=== PATIENT | male | born 1965 | race Caucasian/White ===

== ENCOUNTER 2017-03-14 19:50 | Emergency (ER) | payer OTHER ==
[~2017-03-14] VITALS: Ht 177.8 cm; Wt 71.3 kg
[~2017-03-14 19:50] MED LIST: ACET-1256 PO
[2017-03-14 19:59] VITALS: BP 137/88; TEMP 36.7; Ht 177.8 cm; Wt 71.3 kg
[2017-03-14] MEDS ORDERED: PENICILLIN V POTASSIUM 250 MG TAB PO STA (20:56)
[2017-03-14] MEDS ORDERED: PENICILLIN HOME PACK 250MG (4)BTL PO STA (20:56)
[2017-03-14] MEDS ORDERED: NORCO 5/325MG HOME PACK PO STA (20:56)
[2017-03-14] MEDS ORDERED: HYDROCODONE/ACETAMOPHEN 5/325MG TAB PO STA (20:56)
[2017-03-14] MEDS ORDERED: PRED20TA2 PO (21:23)
[2017-03-14] MEDS ORDERED: HYDR-5688 PO (21:23)
[2017-03-14] MEDS ORDERED: PENI-82 PO (21:23)
--- NOTE | 2017-03-14 21:29 | EMERGENCY ROOM VISIT NOTE ---
History First contact with patient: 20:17 Chief Complaint: BACK PAIN Stated Complaint: HEADACHES,LEFT TOOTH,LOWER BACK PAIN History of Present Illness The patient is a 51 year old male who presents to the Emergency Room via private vehicle with complaints of "headaches, left tooth, low back pain". The patient states that he has been seen here for previous in the past, and has a history of chronic low back pain. He states that at times it will flare, and notes that the low back pain is worse with quick movements, and is reproducible with pressing on the area. He notes that he did have a history of sciatica in the past, and could not move his lower left leg for 6 years[address] He has seen Dr. Gan in the past. He was found that he had L4-L5 narrowing. He at this time denies any fevers, chills, chest pain, shortness of breath, abdominal pain, lower extremity weakness, bowel or bladder incontinence, numbness or tingling in the genital region. He points to the diffuse lumbar spines location of the pain radiates into his left leg. He also notes that he has left lower dentition pain, which began 3 days ago. She does not have any of his top teeth. He states he has tried Dr Pepper, and sweet tea without relief. Review of Systems A complete 6-point Review of Systems was discussed with the patient, with pertinent positives and negatives listed in the History of Present Illness. All remaining Review of Systems questions can be considered negative unless otherwise specified. Past Medical/Surgical History Medical Problems: (1) Ankle sprain (2) Ankle sprain (3) Asthma (4) Bronchitis (5) Chest pain (6) Dental abscess (7) Emphysema (8) Emphysema lung (9) Low back pain (10) Lumbago (11) Pain, dental (12) Right shoulder pain (13) Substernal chest pain (14) Superficial phlebitis of arm Family History Early heart disease Heart disease Hypertension Social History Smoking Status: Current Every Day Smoker Alcohol Use: occasionally Marital Status: in relationship Housing Status: lives alone Occupation Status: employed Current/Historical Medications Scheduled Penicillin V Potassium (Veetids), 500 MG PO QID Prednisone (Prednisone Tab), 0 PO DAILY Scheduled PRN Hydrocodone/Acetaminophen 5MG/325MG (Castor 5MG/325MG), 1-2 TABLET PO Q6 PRN for Pain Allergies Coded Allergies: Naproxen (Verified Adverse Reaction, Intermediate, vomiting, 03/14/17) Physical Exam Vital Signs Date Time Temp Pulse Resp B/P Pulse Ox O2 Delivery O2 Flow Rate FiO2 03/14/17 21:37 87 18 95 03/14/17 19:59 36.7 93 16 137/88 95 Room Air Physical Exam VITAL SIGNS - Vital signs and nursing notes were reviewed. Previous visits were reviewed. GENERAL -51-year-old male appearing older than his stated age who is in no acute distress. Communicates well with provider and answers questions appropriately. SKIN - Without rashes. No petechial rash. HEAD - NC/AT. EYES - Sclera anicteric. Palpebral conjunctiva pink and moist with no injection noted. EARS - No deformities of external structures noted on gross examination bilaterally. NOSE - Midline and without cyanosis. No epistaxis or purulent drainage noted. MOUTH/OROPHARYNX - Without perioral cyanosis. Buccal mucosa pink and moist and without leukoplakia. Tongue midline with equal elevation of palate bilaterally. No tonsillar hypertrophy, erythema, or exudates noted. Poor dentition noted. There is evidence of extracted dentition and healing gums on the upper dental region, and there is evidence of a carious tooth at the left inferior posterior molar region. There is no tenderness to palpation. There is no surrounding erythema, evidence of Barron angina or drainage. NECK - Neck with FROM. Supple to palpation. No lymphadenopathy noted. No nuchal rigidity. LUNGS - Chest wall symmetric without accessory muscle use, intercostals retractions, or central cyanosis. Normal vesicular breath sounds CTA B/L. No wheezes, rales, or rhonchi appreciated. CARDIAC - RRR with S1/S2. No murmur, rubs, or gallops appreciated. ABDOMEN - Abdominal contour without pulsations or visible masses. BS normoactive all four quadrants. No tenderness, palpable masses, hepatosplenomegaly, or ascites noted. MUSCULOSKELETAL: There is strength and ability to axial load bilaterally. No evidence of cauda equina syndrome. There is tenderness to palpation overlying the right paraspinous lumbar musculature extending across the lumbar spine radiating into the left leg. EXTREMITIES - No clubbing or peripheral cyanosis. No pretibial edema present. He is neurovascularly intact in lower extremity. +5/5 strength noted in UE/LE bilaterally. Medical Decision & Procedures Medications Administered Medications (Trade) Dose Ordered Sig/Laz Route Start Time Stop Time Status Last Admin Dose Admin Acetaminophen/ Hydrocodone Bitart (Castor 5/325mg Home Pack) 1 homepack UD STAT PO 03/14/17 20:56 03/14/17 20:58 DC 03/14/17 21:26 1 HOMEPACK Penicillin V Potassium (Pen-Vk 250MG Home Pack) 1 homepack UD STAT PO 03/14/17 20:56 03/14/17 20:58 DC 03/14/17 21:26 1 HOMEPACK Penicillin V Potassium (Veetids Tab) 500 mg ONE STAT PO 03/14/17 20:56 03/14/17 20:58 DC 03/14/17 21:22 500 MG Prednisone (PredniSONE TAB) 50 mg NOW STAT PO 03/14/17 20:56 03/14/17 20:58 DC 03/14/17 21:22 50 MG Medical Decision Patient was seen and evaluated as above. After obtaining a thorough history and physical examination previous visits were extensively reviewed. Patient states that he has been here before for the same exact pain, and this is no different. He also is here for dental pain. He has an allergy to naproxen. At this time I do not believe that any imaging would be of benefit, as I did review his previous lumbar spine x-rays which revealed degenerative change. There is been no recent trauma or injury to the low back. In reading previous visits, I did fully entertain different treatment modalities and believe that at this time it was best to treat him with a short course of steroids, pain medication and antibiotics for his dental pain or early dental infection. He was initially ordered a medication called Castor, however he did not have a ride therefore this was added to a home pack for him since his pharmacy is closed. A short-term prescription was then sent to his pharmacy. The prescription for Castor, prednisone taper for his radicular back pain as well as penicillin was sent to the pharmacy. He was educated upon management importance of follow-up with the family doctor. He was educated upon worrisome symptoms which to return , had questions prior to discharge and was discharged home in good condition. The patient's presentation is not suspicious of any emergent or life- threatening ailments. In evaluation treatment of this patient the following differential diagnoses were entertained: Barron angina, abscess, odontalgia, lumbar strain, acute exacerbation of chronic low back pain, AAA, among others. [place] Drug Monitoring Program Search Results: patient reviewed within database, no issues identified Impression Primary Impression: Low back pain with left-sided sciatica Additional Impression: Odontalgia Departure Information Dispostion Home / Self-Care Condition GOOD Prescriptions Penicillin V Potassium (Veetids) 500 Mg Tab 500 MG PO QID, #40 TAB Prov: Maurilio Adams PA-C 03/14/17 Hydrocodone/Acetaminophen 5MG/325MG (Castor 5MG/325MG) Tab 1-2 TABLET PO Q6 Y for Pain, #15 TAB For Initial Treatment Prov: Maurilio Adams PA-C 03/14/17 Prednisone (Prednisone Tab) 20 Mg Tab 0 PO DAILY, #18 TAB 3 DAILY FOR 3 DAYS, THEN 2 DAILY FOR 3 DAYS, THEN 1 DAILY FOR 3 DAYS. Prov: Maurilio Adams PA-C 03/14/17 Referrals No Doctor, Assigned (PCP) Patient Instructions My [facility] Additional Instructions You have been treated in the Emergency Department for Back Pain and dental pain. You have received pain medicine in the emergency department which impairs your ability to operate a vehicle. It is illegal for you to drive after receiving these medicines. You have been prescribed NORCO to be used for pain control. This is a narcotic medication. You cannot drive or consume alcohol while on this medicine. This medicine should only be used for pain that cannot be controlled with over-the- counter pain medicines. You have been prescribed Prednisone to be taken. This is an anti-inflammatory medicine to be used to help minimize your symptoms. You should take the COMPLETE course of the medication. For pain control, you can use the following [id number] medicines (if >12 yo): - Regular strength (325mg/tab) Tylenol (acetaminophen) 2 tabs every 4-6 hours as needed. Do not exceed 12 tablets in a 24 hour period. Avoid taking more than 3 grams (3000 mg) of Tylenol per day. This includes any other sources of acetaminophen you may take on a regular basis. - Regular strength (200 mg/tab) Advil (ibuprofen) 1-2 tabs every 4-6 hours as needed. Do not exceed a dose of 3200 mg per day. If this is an acute injury, ice can be applied to the area of pain for the first 3 days to help decrease pain and inflammation. After the first 3 days, a heating pad can be used over the area for continued soothing relief. You should schedule a follow-up appointment in 2-3 days with your Primary Care Provider for further evaluation and treatment of your back pain. DENTIST: Our office phone number is [phone] and we are located at [address] [place] [address], [address], [place]. Thank you for your time. Dr. Robert Gonzalez, DMD You've been prescribed penicillin. This is an antibiotic. All antibiotics have the ability to cause diarrhea, and allergic reaction. This is one tablet 4 times a day for 10 days. This is to help with any potential tooth infection. Please call his dentist first thing tomorrow morning to schedule follow-up. Return to the Emergency Department if your current symptoms worsen despite treatment course outlined above, or if you develop any of the following symptoms : intractable pain despite aforementioned treatment course, loss of control of your bowel or bladder, numbness or tingling in your groin, or development of a fever. Please call your family doctor first thing tomorrow morning and schedule follow- up regarding today's visit. Please return to the emergency department with any new/concerning symptoms. Problem Qualifiers
[2017-03-14 21:37] VITALS: PULSE 87; O2SAT 95
== END 2017-03-14 21:38 | disposition home or self-care (01) ==
LOC: C.EDB 19:51 → C.EDD 21:38
DX: M54.42 Lumbago with sciatica, left side (principal); K08.89 Other specified disorders of teeth and supporting structures; G89.29 Other chronic pain; J45.909 Unspecified asthma, uncomplicated; J43.9 Emphysema, unspecified; F17.200 Nicotine dependence, unspecified, uncomplicated; Z82.49 Family history of ischemic heart disease and other diseases of the circulatory system

== ENCOUNTER 2017-04-12 19:49 | Emergency (ER) | payer OTHER ==
[~2017-04-12] VITALS: Ht 175.3 cm; Wt 71.8 kg
[~2017-04-12 19:49] MED LIST changes: -ACET-1256 PO; +HYDR-5688 PO; +PENI-82 PO; +PRED20TA2 PO
[2017-04-12 19:54] VITALS: Ht 175.3 cm; Wt 71.8 kg
[2017-04-12 20:15] LABS: ISTAT HEMOGLOBIN 13.3 g/dl (14.0-18.0); ISTAT IONIZED CALCIUM 1.07 mmol/l (1.12-1.32)
[2017-04-12] MEDS ORDERED: FENTANYL CITRATE INJ 50 MCG/1 ML 2 ML VIAL ONE (20:20)
--- NOTE | 2017-04-12 20:24 | EMERGENCY ROOM VISIT NOTE ---
History Report prepared by [place]: Junaid Tierney Under the Supervision of: Dr. Hank Moore D.O. First contact with patient: 20:14 Chief Complaint: LACERATION/CUT (NON-SUTURE) Stated Complaint: LACERTION TO LEG FROM CIRCULAR SAW Nursing Triage Summary: Pt arrives by ALS from home. Severe laceration to right thigh. Pt was using circular saw to cut pallets, hit nail, saw kicked back and cut pt in thigh. pt waiting about 1 hour before calling EMS. EMS applied turniqut at 1917. Pt medicated with 50 Fentanyl, NSS en route. Pt denies any medical hx. Awake, alert and oriented x4. Burning, pain to right thigh, 8/10 History of Present Illness The patient is a 51 year old male who presents to the Emergency Room via ALS with complaints of right leg laceration occurring about an hour and a half ago. He describes it to be a burning pain. He rates a pain intensity of 8/10. He has worsening pain with movement. He was using a circular saw to cut wood when he hit a nail. The saw kicked back and hit his thigh causing a laceration. EMS applied tourniquet about an hour ago. He was received Fentanyl in route to the Emergency Room. Pt denies headache, change in vision, fevers, chest pain, shortness of breath, nausea, vomiting, diarrhea, pain with urination, and melena. His last tetanus shot was 2 years ago. He has no other complaints at this time. No tingling or numbness in his leg. Source of History: patient Onset: about an hour and a half ago Position: leg (right) Symptom Intensity: 8/10 Quality: burning, other (laceration) Modifying Factors (Worsening): movement Modifying Factors (Relieving): other (Fentanyl ) Associated Symptoms: No SOB, No chest pain, No diarrhea, No fevers, No headache, No nausea, No vomiting Review of Systems See HPI for pertinent positives & negatives. A total of 10 systems reviewed and were otherwise negative. Past Medical & Surgical Medical Problems: (1) Ankle sprain (2) Ankle sprain (3) Asthma (4) Bronchitis (5) Chest pain (6) Dental abscess (7) Emphysema (8) Emphysema lung (9) Low back pain (10) Lumbago (11) Pain, dental (12) Right shoulder pain (13) Substernal chest pain (14) Superficial phlebitis of arm Family History Early heart disease Heart disease Hypertension Social History Smoking Status: Current Every Day Smoker Alcohol Use: occasionally Marital Status: in relationship Housing Status: lives alone Occupation Status: employed Current/Historical Medications Scheduled Cephalexin Monohydrate (Keflex), 500 MG PO TID Scheduled PRN Oxycodone Immediate Rel Tab (Roxicodone Ir), 1-2 TAB PO Q4H PRN for Severe Pain Allergies Coded Allergies: Naproxen (Verified Adverse Reaction, Intermediate, vomiting, 04/12/17) Physical Exam Vital Signs Date Time Temp Pulse Resp B/P Pulse Ox O2 Delivery O2 Flow Rate FiO2 04/13/17 00:21 37.0 79 14 121/67 97 Room Air 04/12/17 23:06 98 04/12/17 23:00 79 12 102/61 93 Room Air 04/12/17 22:03 83 15 125/87 97 Room Air 04/12/17 21:18 103 19 133/87 95 Room Air 04/12/17 20:13 86 30 132/83 100 Room Air 04/12/17 20:01 96 04/12/17 19:54 37.1 91 26 138/81 98 Room Air Physical Exam GENERAL: Sitting up in bed, uncomfortable, tourniquet over right thing. EYE EXAM: normal conjunctiva OROPHARYNX: no exudate, no erythema, lips, buccal mucosa, and tongue normal and mucous membranes are moist NECK: supple, no nuchal rigidity, no adenopathy, non-tender LUNGS: Clear to auscultation. Normal chest wall mechanics HEART: no murmurs, S1 normal and S2 normal ABDOMEN: abdomen soft, non-tender, normo-active bowel sounds, no masses, no rebound or guarding. BACK: Back is symmetrical on inspection and there is no deformity, no midline tenderness, no CVA tenderness. SKIN: no rashes and no bruising UPPER EXTREMITIES: upper extremities are grossly normal. LOWER EXTREMITIES: No pitting edema. Large laceration 14cm in length and is a complex laceration tracking into quadriceps belly without venous oozing/ arterial bleeding, tourniquet was removed immediately upon evaluation, good DP and PT pulses, plantar dorsal flexion intact along with extension and flexion along the hip and knee is intact. Please see my PAs note for further details of the laceration which was explored at length by Joseph. NEURO EXAM: Normal sensorium, cranial nerves II-XII grossly intact, normal speech, no gross weakness of arms. Medical Decision & Procedures ER Provider Diagnostic Interpretation: X-ray results as stated below per my and the radiologist's interpretation: RIGHT FEMUR 4 VIEWS HISTORY: Right thigh laceration. COMPARISON: None. FINDINGS: There is no fracture or dislocation. There is an 11 x 2 cm soft tissue laceration within the distal anterior thigh. No radiopaque foreign bodies. IMPRESSION: No fractures. Soft tissue laceration within the distal anterior thigh. Electronically signed by: Sammy Mcgill M.D. 04/12/2017 9:09 PM Dictated Date/Time: 04/12/2017 9:08 PM Laboratory Results 04/12/17 19:55 Red Blood Count 3.97, Mean Corpuscular Volume 93.2, Mean Corpuscular Hemoglobin 32.0, Mean Corpuscular Hemoglobin Concent 34.3, Mean Platelet Volume 9.4, Neutrophils (%) (Auto) 53.6, Lymphocytes (%) (Auto) 35.0, Monocytes (%) (Auto) 8.9, Eosinophils (%) (Auto) 1.8, Basophils (%) (Auto) 0.4, Neutrophils # (Auto) 3.86, Lymphocytes # (Auto) 2.52, Monocytes # (Auto) 0.64, Eosinophils # (Auto) 0.13, Basophils # (Auto) 0.03 04/12/17 19:55 Test 04/12/17 19:55 04/12/17 20:00 White Blood Count 7.20 K/uL (4.8-10.8) Red Blood Count 3.97 M/uL (4.7-6.1) Hemoglobin 12.7 g/dL (14.0-18.0) Hematocrit 37.0 % (42-52) Mean Corpuscular Volume 93.2 fL (80-100) Mean Corpuscular Hemoglobin 32.0 pg (25-34) Mean Corpuscular Hemoglobin Concent 34.3 g/dl (32-36) Platelet Count 216 K/uL (130-400) Mean Platelet Volume 9.4 fL (7.4-10.4) Neutrophils (%) (Auto) 53.6 % Lymphocytes (%) (Auto) 35.0 % Monocytes (%) (Auto) 8.9 % Eosinophils (%) (Auto) 1.8 % Basophils (%) (Auto) 0.4 % Neutrophils # (Auto) 3.86 K/uL (1.4-6.5) Lymphocytes # (Auto) 2.52 K/uL (1.2-3.4) Monocytes # (Auto) 0.64 K/uL (0.11-0.59) Eosinophils # (Auto) 0.13 K/uL (0-0.5) Basophils # (Auto) 0.03 K/uL (0-0.2) RDW Standard Deviation 45.4 fL (36.4-46.3) RDW Coefficient of Variation 13.2 % (11.5-14.5) Immature Granulocyte % (Auto) 0.3 % Immature Granulocyte # (Auto) 0.02 K/uL (0.00-0.02) Est Creatinine Clear Calc Drug Dose 124.5 ml/min Estimated GFR () 126.8 Estimated GFR (Non- 109.4 BUN/Creatinine Ratio 9.8 (10-20) Calcium Level 7.7 mg/dl (8.5-10.1) Bedside Hemoglobin 13.3 g/dl (14.0-18.0) Bedside Hematocrit 39 % (42-52) Bedside Sodium 136 mEq/L (135-144) Bedside Potassium 3.6 mEq/L (3.3-5.0) Bedside Chloride 100 mEq/L (101-112) Bedside Total CO2 20 mEq/l (24-31) Anion Gap 21.0 mmol/L (16-25) Bedside Blood Urea Nitrogen 5 mg/dl (7-18) Bedside Creatinine 1.0 mg/dl (0.6-1.3) Bedside Glucose (other) 92 mg/dl (70-99) Bedside Ionized Calcium (Paula) 1.07 mmol/l (1.12-1.32) Laboratory results per my review. Medications Administered Medications (Trade) Dose Ordered Sig/Laz Route Start Time Stop Time Status Last Admin Dose Admin Fentanyl Citrate (Fentanyl Inj) 100 mcg STK-MED ONCE .ROUTE 04/12/17 20:20 04/12/17 20:21 DC 04/12/17 20:23 75 MCG Hydromorphone HCl (Dilaudid Inj) 1 mg NOW STAT IV 04/12/17 21:07 5/23/17 21:08 DC 04/12/17 21:15 1 MG Lidocaine/ Epinephrine (Buffered Xylocaine/ Epinephrine 1% Inj) 20 ml NOW ONCE INFIL 04/12/17 22:00 04/12/17 22:01 DC 04/12/17 21:58 20 ML Lidocaine HCl (Buffered Lidocaine 1% Inj) 20 ml NOW ONCE INFIL 04/12/17 22:00 04/12/17 22:01 DC 04/12/17 21:58 20 ML Hydromorphone HCl (Dilaudid Inj) 0.5 mg STK-MED ONCE .ROUTE 04/12/17 22:18 04/12/17 22:19 DC 04/12/17 22:20 0.5 MG Lorazepam (Ativan Inj) 2 mg STK-MED ONCE .ROUTE 04/12/17 22:19 04/12/17 22:20 DC 04/12/17 22:21 1 MG Oxycodone HCl (Roxicodone Immediate Rel 5MG Home Pack) 1 homepack UD ONCE PO 04/13/17 00:00 04/13/17 00:01 DC 04/13/17 01:00 1 HOMEPACK Cephalexin Monohydrate (Keflex Cap) 500 mg NOW ONCE PO 04/13/17 00:00 04/13/17 00:01 DC 04/13/17 01:00 500 MG ECG Indication: other (Right leg injury) Rate (beats per minute): 81 Rhythm: sinus rhythm Findings: ST elevation (lead II), no ectopy, other (normal axis) ED Course ED COURSE: Vital signs were reviewed and showed normal. The patients medical record was reviewed The above diagnostic studies were performed and reviewed. ED treatments and interventions as stated above. 2013: The patient was evaluated in room B01. A complete history and physical examination was performed. 2106: Dilaudid Inj 1 mg IV 2199: Laceration repair was performed by Joseph Calzada PA-C. Refer to his procedure note for further details. 2316: I reevaluated the patient who feels better. 0000: Keflex Cap 500 mg PO, Oxycodone HCl 1 homepack PO. 0015: Upon reevaluation, the patient is resting comfortably.I discussed my findings with the patient and he understands and agrees with the treatment plan. Based on the patients age, coexisting illnesses, exam and lab findings the decision to treat as an outpatient was made. The patient remained stable while under my care. The patient appeared well at the time of discharge. Medical Decision Differential diagnoses include major intracranial, cervical, spinal, thoracic, abdominal, pelvic and neurologic injury. Fracture, contusion, sprain, strain, laceration, abrasions included as well. Patient is a 51-year-old male who presents to the ER with a table saw laceration to his right thigh. Tourniquet was removed initially on my evaluation. X-rays show no obvious foreign body. Wound was cleaned and explored by my PA Joseph. This 14 cm complex laceration was repaired with subcuticular and harika. Tetanus was updated 2 years ago. Vitals were unremarkable. CBC along with BMP was normal. Both patient and his friend were updated at bedside. Patient was placed in a knee immobilizer and given crutches. He was given a referral to orthopedics and instructed to see them within the next 2-3 days. Due to the laceration of the quadriceps belly I was concerned that this could be his as patient noted that he will go back to his usual activities after tonight. I stressed the importance of taking it easy, changing the wound dressings and following up with orthopedics within 1-2 days. Discussed with Pt concerning signs and symptoms to watch out for. Pt was instructed to follow up with their PCP and discussed with the patient their option to return to the ED at anytime for persistent or worsening symptoms. The appropriate anticipatory guidance and out-patient management, including indications for return to the emergency department, were explained at length to the patient and understood. [place] Drug Monitoring Program Search Results: patient reviewed within database Drug Monitoring Findings: Patient had a prescription filled on March 28 for Percocet. Impression Primary Impression: Laceration of leg Scribe Attestation The scribe's documentation has been prepared under my direction and personally reviewed by me in its entirety. I confirm that the note above accurately reflects all work, treatment, procedures, and medical decision making performed by me. Departure Information Dispostion Home / Self-Care Prescriptions Oxycodone Immediate Rel Tab (ROXICODONE IR) 5 Mg Tab 1-2 TAB PO Q4H Y for Severe Pain, #10 TAB Prov: Hank Moore, DO 04/13/17 Cephalexin Monohydrate (Keflex) 500 Mg Cap 500 MG PO TID for 7 Days, CAP Prov: Hank Moore, DO 04/12/17 Referrals No Doctor, Assigned (PCP) Oscar Pride D.O. Forms HOME CARE DOCUMENTATION FORM, IMPORTANT VISIT INFORMATION, WORK / SCHOOL INSTRUCTIONS Patient Instructions ED Laceration All, My [facility] Additional Instructions Please follow up with your primary care doctor with in the next 24 hours. Any worsening of your symptoms, please return to the ED immediately. This includes fevers greater than 100.4, redness around the laceration, discharge, laceration , inability to extend your knee or numbness, or any other concerning signs or symptoms from your standpoint. Please use knee immobilizer until you follow up with orthopedics. Please change dressing to 2-3 times per day. Harika need to be removed within 10 days. Problem Qualifiers Primary Impression: Laceration of leg Encounter type: initial encounter Laterality: right Qualified Codes: S81.811A - Laceration without foreign body, right lower leg, initial encounter
[2017-04-12 20:34] LABS: BASO % 0.4 %; BASO ABS # 0.03 K/uL (0-0.2); COMPLETE YES; EOS % 1.8 %; IG% 0.3 %; LYMPH ABS # 2.52 K/uL (1.2-3.4); MEAN CELL VOLUME 93.2 fL (80-100); MEAN CORPUSCULAR HGB CONC 34.3 g/dl (32-36); MEAN PLATELET VOLUME 9.4 fL (7.4-10.4); MONO % 8.9 %; NEUT % 53.6 %; PLATELET COUNT 216 K/uL (130-400); RED BLOOD COUNT 3.97 M/uL (4.7-6.1)
[2017-04-12 20:44] LABS: BUN/CREATININE RATIO 9.8 (10-20); CALCIUM 7.7 mg/dl (8.5-10.1); CREATININE 0.71 mg/dl (0.60-1.40); POTASSIUM 3.7 mmol/L (3.5-5.1)
[2017-04-12] MEDS ORDERED: HYDROmorphone INJ 1 MG/ML SYR IV STA (21:07)
--- NOTE | 2017-04-12 21:10 | DIAGNOSTIC IMAGING REPORT ---
RIGHT FEMUR 4 VIEWS HISTORY: Right thigh laceration. COMPARISON: None. FINDINGS: There is no fracture or dislocation. There is an 11 x 2 cm soft tissue laceration within the distal anterior thigh. No radiopaque foreign bodies. IMPRESSION: No fractures. Soft tissue laceration within the distal anterior thigh. Electronically signed by: Sammy Mcgill M.D. 04/12/2017 9:09 PM Dictated Date/Time: 04/12/2017 9:08 PM
[2017-04-12] MEDS ORDERED: LIDO/EPINEPHRINE/SOD BICARB 20 ML VIAL INFIL ONE (22:00)
[2017-04-12] MEDS ORDERED: XYLOCAINE 1%/SOD BICARB 20 ML VIAL INFIL ONE (22:00)
[2017-04-12] MEDS ORDERED: HYDROmorphone INJ 0.5 MG/0.5 ML SYR ONE (22:18)
[2017-04-12] MEDS ORDERED: LORAZEPAM 2 MG/ML 1 ML VIAL ONE (22:19)
--- NOTE | 2017-04-12 23:03 | EMERGENCY ROOM VISIT NOTE ---
ED Visit Note Patient was seen and evaluated at the request of my attending physician, Dr. Moore, for evaluation of a right thigh laceration. Please Dr. Moore's dictation for full history of present illness and emergency course outside of this repair. In short the patient suffered a circular saw injury to the right leg with significant laceration. On examination the patient has a very deep and complex 14.5 cm laceration to the right anterior mid thigh. This does penetrate through the dermis, subcutaneous fat, and into the fascial layer. The wound is quite deep and will require repair. There is minimal persistent bleeding. Laceration repair. Patient elects to have their laceration repaired. Verbal consent was obtained to perform the procedure. There is an abundance of materials available for the procedure. Patient is not allergic to latex. Using sterile technique the wound was cleaned with Betadine. The area was sterilely draped. 12 ml of 1% buffered lidocaine with epinephrine was used to anesthetize the right thigh laceration. Once the patient was anesthetized, the wound was copiously irrigated using 500 mL NSS manually as well as 1000 mL via pulsavax. After irrigation the patient began to have muscle spasm throughout the quadriceps distribution, and he was given 0.5 mg IV Dilaudid and 1 mg IV Ativan. This did abort the spasm, and the patient was much more comfortable after medication. The wound was explored and there were no deep structures injured such as significant tendons, bone, or significant blood vessels. The laceration was repaired in a multilevel fashion. Utilizing 4-0 Vicryl the most deep fascial layers were approximated using 8 simple interrupted sutures. A very small arteriole bleed was tied off with a single [id number] stitch. A second small venous bleed was tied off in the same fashion. The more superficial layers were approximated with 2 4-0 Vicryl running sutures. This did minimize bleeding and provided good approximation of the wound. The most outer layer was repaired utilizing 30 hansa with the edges being well approximated. Hemostasis was achieved. The area was cleaned with sterile saline and dressed with bacitracin ointment and bandage. Patient tolerated the procedure well without complications. Blood loss was negligible. Problem List Medical Problems: (1) Ankle sprain Status: Resolved (2) Ankle sprain Status: Resolved (3) Asthma Status: Chronic (4) Bronchitis Status: Resolved (5) Chest pain Status: Resolved (6) Dental abscess Status: Resolved (7) Emphysema Status: Chronic (8) Emphysema lung Status: Resolved (9) Low back pain Status: Resolved (10) Lumbago Status: Chronic (11) Pain, dental Status: Resolved (12) Right shoulder pain Status: Resolved (13) Substernal chest pain Status: Resolved (14) Superficial phlebitis of arm Status: Resolved Current/Historical Medications Scheduled Cephalexin Monohydrate (Keflex), 500 MG PO TID Scheduled PRN Oxycodone Immediate Rel Tab (Roxicodone Ir), 1-2 TAB PO Q4H PRN for Severe Pain Allergies Coded Allergies: Naproxen (Verified Adverse Reaction, Intermediate, vomiting, 04/12/17) Vital Signs Date Time Temp Pulse Resp B/P Pulse Ox O2 Delivery O2 Flow Rate FiO2 04/13/17 00:21 37.0 79 14 121/67 97 Room Air 04/12/17 23:06 98 04/12/17 23:00 79 12 102/61 93 Room Air 04/12/17 22:03 83 15 125/87 97 Room Air 04/12/17 21:18 103 19 133/87 95 Room Air 04/12/17 20:13 86 30 132/83 100 Room Air 04/12/17 20:01 96 04/12/17 19:54 37.1 91 26 138/81 98 Room Air Laboratory Results 04/12/17 19:55 Red Blood Count 3.97, Mean Corpuscular Volume 93.2, Mean Corpuscular Hemoglobin 32.0, Mean Corpuscular Hemoglobin Concent 34.3, Mean Platelet Volume 9.4, Neutrophils (%) (Auto) 53.6, Lymphocytes (%) (Auto) 35.0, Monocytes (%) (Auto) 8.9, Eosinophils (%) (Auto) 1.8, Basophils (%) (Auto) 0.4, Neutrophils # (Auto) 3.86, Lymphocytes # (Auto) 2.52, Monocytes # (Auto) 0.64, Eosinophils # (Auto) 0.13, Basophils # (Auto) 0.03 04/12/17 19:55 Test 04/12/17 19:55 04/12/17 20:00 White Blood Count 7.20 K/uL (4.8-10.8) Red Blood Count 3.97 M/uL (4.7-6.1) Hemoglobin 12.7 g/dL (14.0-18.0) Hematocrit 37.0 % (42-52) Mean Corpuscular Volume 93.2 fL (80-100) Mean Corpuscular Hemoglobin 32.0 pg (25-34) Mean Corpuscular Hemoglobin Concent 34.3 g/dl (32-36) Platelet Count 216 K/uL (130-400) Mean Platelet Volume 9.4 fL (7.4-10.4) Neutrophils (%) (Auto) 53.6 % Lymphocytes (%) (Auto) 35.0 % Monocytes (%) (Auto) 8.9 % Eosinophils (%) (Auto) 1.8 % Basophils (%) (Auto) 0.4 % Neutrophils # (Auto) 3.86 K/uL (1.4-6.5) Lymphocytes # (Auto) 2.52 K/uL (1.2-3.4) Monocytes # (Auto) 0.64 K/uL (0.11-0.59) Eosinophils # (Auto) 0.13 K/uL (0-0.5) Basophils # (Auto) 0.03 K/uL (0-0.2) RDW Standard Deviation 45.4 fL (36.4-46.3) RDW Coefficient of Variation 13.2 % (11.5-14.5) Immature Granulocyte % (Auto) 0.3 % Immature Granulocyte # (Auto) 0.02 K/uL (0.00-0.02) Est Creatinine Clear Calc Drug Dose 124.5 ml/min Estimated GFR () 126.8 Estimated GFR (Non- 109.4 BUN/Creatinine Ratio 9.8 (10-20) Calcium Level 7.7 mg/dl (8.5-10.1) Bedside Hemoglobin 13.3 g/dl (14.0-18.0) Bedside Hematocrit 39 % (42-52) Bedside Sodium 136 mEq/L (135-144) Bedside Potassium 3.6 mEq/L (3.3-5.0) Bedside Chloride 100 mEq/L (101-112) Bedside Total CO2 20 mEq/l (24-31) Anion Gap 21.0 mmol/L (16-25) Bedside Blood Urea Nitrogen 5 mg/dl (7-18) Bedside Creatinine 1.0 mg/dl (0.6-1.3) Bedside Glucose (other) 92 mg/dl (70-99) Bedside Ionized Calcium (Paula) 1.07 mmol/l (1.12-1.32) Medications Administered Medications (Trade) Dose Ordered Sig/Laz Route Start Time Stop Time Status Last Admin Dose Admin Fentanyl Citrate (Fentanyl Inj) 100 mcg STK-MED ONCE .ROUTE 04/12/17 20:20 04/12/17 20:21 DC 04/12/17 20:23 75 MCG Hydromorphone HCl (Dilaudid Inj) 1 mg NOW STAT IV 04/12/17 21:07 04/12/17 21:08 DC 04/12/17 21:15 1 MG Lidocaine/ Epinephrine (Buffered Xylocaine/ Epinephrine 1% Inj) 20 ml NOW ONCE INFIL 04/12/17 22:00 04/12/17 22:01 DC 04/12/17 21:58 20 ML Lidocaine HCl (Buffered Lidocaine 1% Inj) 20 ml NOW ONCE INFIL 04/12/17 22:00 04/12/17 22:01 DC 04/12/17 21:58 20 ML Hydromorphone HCl (Dilaudid Inj) 0.5 mg STK-MED ONCE .ROUTE 04/12/17 22:18 04/12/17 22:19 DC 04/12/17 22:20 0.5 MG Lorazepam (Ativan Inj) 2 mg STK-MED ONCE .ROUTE 04/12/17 22:19 04/12/17 22:20 DC 04/12/17 22:21 1 MG Oxycodone HCl (Roxicodone Immediate Rel 5MG Home Pack) 1 homepack UD ONCE PO 04/13/17 00:00 04/13/17 00:01 DC 04/13/17 01:00 1 HOMEPACK Cephalexin Monohydrate (Keflex Cap) 500 mg NOW ONCE PO 04/13/17 00:00 04/13/17 00:01 DC 04/13/17 01:00 500 MG Departure Information Prescriptions Oxycodone Immediate Rel Tab (ROXICODONE IR) 5 Mg Tab 1-2 TAB PO Q4H Y for Severe Pain, #10 TAB Prov: Hank Moore, DO 04/13/17 Cephalexin Monohydrate (Keflex) 500 Mg Cap 500 MG PO TID for 7 Days, CAP Prov: Hank Moore, DO 04/12/17 Referrals No Doctor, Assigned (PCP) Patient Instructions [facility]
[2017-04-12] MEDS ORDERED: CEPH500C PO (23:54)
[2017-04-13] MEDS ORDERED: OXYCODONE IR HOME PACK PO ONE
[2017-04-13] MEDS ORDERED: CEPHALEXIN MONOHYDRATE 250 MG CAP PO ONE
[2017-04-13] MEDS ORDERED: OXYC1TAB3 PO (00:17)
[2017-04-13 00:21] VITALS: BP 121/67; PULSE 79; TEMP 37; O2SAT 97
== END 2017-04-13 01:04 | disposition home or self-care (01) ==
LOC: EDBD 19:49 → C.EDB 19:52
DX: S71.111A Laceration without foreign body, right thigh, initial encounter (principal); W31.2XXA Contact with powered woodworking and forming machines, initial encounter; J43.9 Emphysema, unspecified; J45.909 Unspecified asthma, uncomplicated; M54.5 Low back pain; Z82.49 Family history of ischemic heart disease and other diseases of the circulatory system; F17.210 Nicotine dependence, cigarettes, uncomplicated

== ENCOUNTER 2017-04-16 21:11 | Emergency (ER) | payer OTHER ==
[~2017-04-16] VITALS: Ht 175.3 cm; Wt 69.9 kg
[~2017-04-16 21:11] MED LIST changes: +CEPH500C PO; -HYDR-5688 PO; +OXYC1TAB3 PO; -PENI-82 PO; -PRED20TA2 PO
[2017-04-16 21:18] VITALS: TEMP 36.4; Ht 175.3 cm; Wt 69.9 kg
[2017-04-16] MEDS ORDERED: CEFTRIAXONE SOD INJ 1 GM ADDVIAL IV STA (22:13)
[2017-04-16] MEDS ORDERED: SULFAMETHOXAZOLE/TRIMETHOPRIM DS 800/160MG TAB PO STA (22:13)
--- NOTE | 2017-04-16 22:25 | EMERGENCY ROOM VISIT NOTE ---
History Report prepared by Kezia: Genaro Oneal Under the Supervision of: Dr. Tera Kulkarni M.D. First contact with patient: 21:55 Chief Complaint: WOUND INFECTION Stated Complaint: WAS IN TRAUMA TUES DISCHARGE R LEG WOUND Nursing Triage Summary: Pt here Tues nighty for circular saw injury to RLE. Pt returns tonight for wound being painful, red and swollen with yellow drainage. History of Present Illness The patient is a 51 year old male who presents to the Emergency Room with complaints of a worsening wound infection that began earlier today. The patient rates his discomfort as a 7/10 in severity. He reports that he had an injury to his right thigh from a circular saw accident last night which prompted him to visit the ED. He was sent home with a prescription for Keflex, which he admits he is currently taking. He reports that he changed bandages three times because he keeps bleeding through the bandaging. The patient reports that he tried to use alcohol to numb his pain, but it has provided no relief. He states that he tried to make an appointment with his primary care physician, but they referred him to the ED since they cannot get him in until a couple of days later. He denies any other complaints at today's visit. Source of History: patient Onset: [employer] Position: leg (right) Symptom Intensity: 7/10 Timing: worsening Modifying Factors (Relieving): other (alcohol) Note: Associated symptoms include: edema, pain, and erythema in the right leg Review of Systems See HPI for pertinent positives & negatives. A total of 10 systems reviewed and were otherwise negative. Past Medical & Surgical Medical Problems: (1) Ankle sprain (2) Ankle sprain (3) Asthma (4) Bronchitis (5) Chest pain (6) Dental abscess (7) Emphysema (8) Emphysema lung (9) Low back pain (10) Lumbago (11) Pain, dental (12) Right shoulder pain (13) Substernal chest pain (14) Superficial phlebitis of arm Family History Early heart disease Heart disease Hypertension Social History Smoking Status: Current Every Day Smoker Alcohol Use: occasionally Drug Use: none Marital Status: in relationship Housing Status: lives alone Occupation Status: employed Current/Historical Medications Scheduled Bacitracin (Topical) (Bacitracin), 1 APPLN TOP BID Cephalexin Monohydrate (Keflex), 500 MG PO TID Sulfa/Trimethoprim (Bactrim Ds 800MG/160MG), 1 TAB PO BID Allergies Coded Allergies: Naproxen (Verified Adverse Reaction, Intermediate, vomiting, 04/12/17) Physical Exam Vital Signs Date Time Temp Pulse Resp B/P Pulse Ox O2 Delivery O2 Flow Rate FiO2 04/16/17 23:36 90 18 124/78 96 Room Air 04/16/17 21:18 36.4 96 18 126/73 98 Room Air Physical Exam GENERAL: Patient is a healthy-appearing, well-nourished 51 year old male. HEAD: Normocephalic atraumatic EYES: Ocular movements intact, pupils equal and react to light OROPHARYNX mucous membranes are moist, no exudates present no erythema or edema present NECK: Supple no nuchal rigidity CHEST: Good equal expansion LUNGS: Clear and equal to auscultation CARDIAC: Normal S1 and S2 ABDOMEN: Soft nontender no guarding BACK: No CVA tenderness EXTREMITIES: Wound to right lower extremity, draining serosanguineous fluid. Appears to be healing well. Normal muscle strength in all groups, no clubbing cyanosis or edema. NEURO: Patient is following commands is answering questions appropriately. Alert and oriented x3 Cranial Nerves 2-12 grossly intact Medical Decision & Procedures Laboratory Results 04/16/17 22:40 Red Blood Count 3.85, Mean Corpuscular Volume 91.7, Mean Corpuscular Hemoglobin 31.4, Mean Corpuscular Hemoglobin Concent 34.3, Mean Platelet Volume 9.2, Neutrophils (%) (Auto) 47.8, Lymphocytes (%) (Auto) 40.8, Monocytes (%) (Auto) 8.3, Eosinophils (%) (Auto) 2.6, Basophils (%) (Auto) 0.3, Neutrophils # (Auto) 3.17, Lymphocytes # (Auto) 2.70, Monocytes # (Auto) 0.55, Eosinophils # (Auto) 0.17, Basophils # (Auto) 0.02 04/16/17 22:40 Test 04/16/17 22:40 White Blood Count 6.62 K/uL (4.8-10.8) Red Blood Count 3.85 M/uL (4.7-6.1) Hemoglobin 12.1 g/dL (14.0-18.0) Hematocrit 35.3 % (42-52) Mean Corpuscular Volume 91.7 fL (80-100) Mean Corpuscular Hemoglobin 31.4 pg (25-34) Mean Corpuscular Hemoglobin Concent 34.3 g/dl (32-36) Platelet Count 270 K/uL (130-400) Mean Platelet Volume 9.2 fL (7.4-10.4) Neutrophils (%) (Auto) 47.8 % Lymphocytes (%) (Auto) 40.8 % Monocytes (%) (Auto) 8.3 % Eosinophils (%) (Auto) 2.6 % Basophils (%) (Auto) 0.3 % Neutrophils # (Auto) 3.17 K/uL (1.4-6.5) Lymphocytes # (Auto) 2.70 K/uL (1.2-3.4) Monocytes # (Auto) 0.55 K/uL (0.11-0.59) Eosinophils # (Auto) 0.17 K/uL (0-0.5) Basophils # (Auto) 0.02 K/uL (0-0.2) RDW Standard Deviation 43.1 fL (36.4-46.3) RDW Coefficient of Variation 12.8 % (11.5-14.5) Immature Granulocyte % (Auto) 0.2 % Immature Granulocyte # (Auto) 0.01 K/uL (0.00-0.02) Anion Gap 9.0 mmol/L (3-11) Est Creatinine Clear Calc Drug Dose 148.1 ml/min Estimated GFR () 136.8 Estimated GFR (Non- 118.1 BUN/Creatinine Ratio 11.5 (10-20) Calcium Level 8.5 mg/dl (8.5-10.1) Total Bilirubin 0.2 mg/dl (0.2-1) Direct Bilirubin < 0.1 mg/dl (0-0.2) Aspartate Amino Transf (AST/SGOT) 20 U/L (15-37) Alanine Aminotransferase (ALT/SGPT) 19 U/L (12-78) Alkaline Phosphatase 56 U/L (45-117) Total Protein 6.7 gm/dl (6.4-8.2) Albumin 3.4 gm/dl (3.4-5.0) Lipase 239 U/L (73-393) Labs reviewed by ED physician. Medications Administered Medications (Trade) Dose Ordered Sig/Laz Route Start Time Stop Time Status Last Admin Dose Admin Trimethoprim/ Sulfamethoxazole (Septra Ds 800/ 160MG Tab) 1 tab NOW STAT PO 04/16/17 22:13 04/16/17 22:15 DC 04/16/17 22:51 1 TAB Ceftriaxone Sodium (Rocephin Inj) 1 gm NOW STAT IV 04/16/17 22:13 04/16/17 22:15 DC 04/16/17 22:52 1 GM ED Course 2207: Past medical records reviewed. The patient was evaluated in room A04B. A complete history and physical examination was performed. 2213: Rocephin Injection 1 gm IV, Septra Ds 800/160 MG Tab 1 tab PO. 2336: Upon reexamination the patient is doing well. I discussed results and treatment plan with the patient. He verbalizes agreement and understanding. The patient is ready for discharge. Medical Decision Blood Pressure Screening: Patient was found to have an elevated blood pressure and was referred to their primary care doctor for recheck and further treatment. Medication Reconciliation: I attest that I have personally reviewed the patient' s current medication list. Etiologies such as cellulitis, abscess, MRSA infection, DVT, necrotizing fasciitis, dermatitis, drug eruption, as well as others were entertained. This is a 51-year-old male who presents emergency department over serosanguineous fluid that is draining from a wound that was stapled. The fluid is clear and there is no evidence of pus. In addition the patient does not have any outright evidence of infection. He also does not have an elevation in his white blood count cell count. Based on these findings I feel the patient can be safely discharged home. I did increase the patient's antibiotic coverage and place the patient on Bactrim. I recommended follow-up with wound care clinic. Patient was in agreement with the treatment plan. Impression Primary Impression: Encounter for wound re-check Scribe Attestation The scribe's documentation has been prepared under my direction and personally reviewed by me in its entirety. I confirm that the note above accurately reflects all work, treatment, procedures, and medical decision making performed by me. Departure Information Dispostion Home / Self-Care Prescriptions Sulfa/Trimethoprim (Bactrim Ds 800MG/160MG) Tab 1 TAB PO BID for 10 Days, #20 TAB Prov: Tera Kulkarni MD 04/16/17 Bacitracin (Topical) (BACITRACIN) 500 Unit/Gm Oin 1 APPLN TOP BID for 7 Days, #30 GM Prov: Tera Kulkarni MD 04/16/17 Referrals No Doctor, Assigned (PCP) Forms HOME CARE DOCUMENTATION FORM, IMPORTANT VISIT INFORMATION, WORK / SCHOOL INSTRUCTIONS Patient Instructions [facility], Wound Care - [facility] Additional Instructions Continue taking Keflex Follow up with wound clinic You were found to have an elevated blood pressure today (>120 sytolic or >90 diastolic). Per medicare guidelines, you need to follow up with this blood pressure screening with your Primary Care Physician (PCP). For a new PCP call [phone]. Culture results are usually available in approx 48 hours You have been examined and treated today on an emergency basis only. This is not a substitute for, or an effort to provide, complete comprehensive medical care. It is impossible to recognize and treat all injuries or illnesses in a single emergency department visit. It is therefore important that you follow up closely with [facility]. Call as soon as possible for an appointment. Thank you for your time and consideration. I look forward to speaking with you again soon. Please don't hesitate to call us if you have any questions.
[2017-04-16 22:52] LABS: BASO % 0.3 %; BASO ABS # 0.02 K/uL (0-0.2); COMPLETE YES; EOS % 2.6 %; HEMATOCRIT 35.3 % (42-52); IG% 0.2 %; LYMPH % 40.8 %; MEAN CELL VOLUME 91.7 fL (80-100); MEAN CORPUSCULAR HEMOGLOBIN 31.4 pg (25-34); MEAN CORPUSCULAR HGB CONC 34.3 g/dl (32-36); MEAN PLATELET VOLUME 9.2 fL (7.4-10.4); MONO % 8.3 %; NEUT % 47.8 %; PLATELET COUNT 270 K/uL (130-400); RED BLOOD COUNT 3.85 M/uL (4.7-6.1); WHITE BLOOD COUNT 6.62 K/uL (4.8-10.8)
[2017-04-16] MEDS ORDERED: BACI500O11 TOP (22:56)
[2017-04-16] MEDS ORDERED: SULF800T23 PO (22:56)
[2017-04-16 23:05] LABS: CALCIUM 8.5 mg/dl (8.5-10.1)
[2017-04-16 23:09] LABS: ALT/SGPT 19 U/L (12-78); BLOOD UREA NITROGEN 7 mg/dl (7-18); BUN/CREATININE RATIO 11.5 (10-20); CARBON DIOXIDE 26 mmol/L (21-32); CHLORIDE 103 mmol/L (98-107); CREATININE 0.59 mg/dl (0.60-1.40); GLUCOSE 93 mg/dl (70-99); POTASSIUM 3.5 mmol/L (3.5-5.1); SODIUM 138 mmol/L (136-145)
[2017-04-16 23:12] LABS: ALKALINE PHOSPHATASE 56 U/L (45-117); AST/SGOT 20 U/L (15-37)
[2017-04-16 23:36] VITALS: BP 124/78; PULSE 90; O2SAT 96
== END 2017-04-17 00:05 | disposition home or self-care (01) ==
LOC: C.EDB 21:12 → C.EDA 04-17 00:05
DX: S71.111D Laceration without foreign body, right thigh, subsequent encounter (principal); W31.2XXD Contact with powered woodworking and forming machines, subsequent encounter; Z09 Encounter for follow-up examination after completed treatment for conditions other than malignant neoplasm; J43.9 Emphysema, unspecified; Z82.49 Family history of ischemic heart disease and other diseases of the circulatory system; F17.210 Nicotine dependence, cigarettes, uncomplicated

== ENCOUNTER 2017-06-09 17:54 | Emergency (ER) | payer OTHER ==
[~2017-06-09] VITALS: Ht 175.3 cm; Wt 66.6 kg
[2017-06-09 17:55] VITALS: TEMP 36.6; Ht 175.3 cm; Wt 66.6 kg
[2017-06-09] MEDS ORDERED: SODIUM CHLORIDE 0.9% 1000ML 1,000 ML IV STA (18:42)
[2017-06-09] MEDS ORDERED: ONDANSETRON INJ 2 MG/ML 2 ML VIAL IV STA (18:42)
[2017-06-09] MEDS ORDERED: KETOROLAC TROMETHAMINE 30 MG/ML VIAL IV STA (18:42)
--- NOTE | 2017-06-09 18:54 | EMERGENCY ROOM VISIT NOTE ---
History First contact with patient: 18:04 Chief Complaint: VOMITING Stated Complaint: NAUSEA, PUKING AND LOWER BACK PAIN Nursing Triage Summary: left sided flank pain and abd pain for 2 days History of Present Illness The patient is a 51 year old male who presents to the Emergency Room with complaints of nausea, vomiting, abdominal pain 2 days. The patient states he awoke on Tuesday, not feeling well. He states at that time, he began vomiting. He states throughout the day, he did experience significant diarrhea as well. The patient states he drank 3-1/2 gallons of water throughout the day on Tuesday, with no improvement in his symptoms. He states he normally smokes one pack of cigarettes per day, however that day he was only able to smoke about 4 cigarettes. He states he slept most of the day due to the fatigue and body aches. The patient denies fevers, as he did not check his temperature, but does report chills. The patient does report body aches and low back pain, however he states this pain is the same as the pain he experiences with his sciatica which acts up on occasion. He denies worsening low back pain. The patient denies chest pain, dyspnea, urinary complaints, lightheadedness, dizziness, headache, recent ill contacts, or other associated symptoms. He does state over the past 2 days, he has been improving, however continues to have the nausea, vomiting, abdominal pain. Review of Systems A complete 10 point review of systems was reviewed with the patient with pertinent positives and negatives as per history of present illness. All else were negative. Past Medical/Surgical History Medical Problems: (1) Ankle sprain (2) Ankle sprain (3) Asthma (4) Bronchitis (5) Chest pain (6) Dental abscess (7) Emphysema (8) Emphysema lung (9) Low back pain (10) Lumbago (11) Pain, dental (12) Right shoulder pain (13) Substernal chest pain (14) Superficial phlebitis of arm Family History Early heart disease Heart disease Hypertension Social History Smoking Status: Current Every Day Smoker Alcohol Use: occasionally Drug Use: none Marital Status: in relationship Housing Status: lives alone Occupation Status: employed Current/Historical Medications Scheduled Methylprednisolone (Medrol Dosepak), 1 PKT PO UD Ondasetron Odt (Zofran Odt), 4 MG SL Q6H Physical Exam Vital Signs Date Time Temp Pulse Resp B/P (MAP) Pulse Ox O2 Delivery O2 Flow Rate FiO2 06/09/17 22:00 80 18 122/67 98 Room Air 06/09/17 21:04 81 96 06/09/17 21:01 111/70 06/09/17 20:49 76 97 06/09/17 20:34 77 97 06/09/17 20:30 114/70 06/09/17 20:19 83 97 06/09/17 20:14 79 98 06/09/17 20:00 118/71 06/09/17 19:59 79 97 06/09/17 19:44 72 98 06/09/17 19:31 113/68 06/09/17 19:29 82 98 06/09/17 19:09 83 96 Room Air 06/09/17 19:05 116/68 06/09/17 17:55 36.6 97 18 107/68 96 Physical Exam VITALS: Vitals are noted on the nurse's note and reviewed by myself. Vital signs stable. GENERAL: This is a 51-year-old male, in no acute distress, nondiaphoretic, well- developed well-nourished. SKIN: The skin was without rashes, erythema, edema, or bruising. There is no tenting of the skin. Capillary reflex less than 2 seconds. HEAD: Normocephalic atraumatic. EARS: External auditory canals clear, tympanic membranes pearly tucker without erythema or effusion bilaterally. EYES: Pupils equal round and reactive to light and accommodation. Conjunctivae without injection, sclerae without icterus. Extraocular movements intact. NOSE: Patent, turbinates without inflammation or discharge. No sinus tenderness. MOUTH: Mucous membranes moist. Tonsils are not enlarged. Pharynx without erythema or exudate. Uvula midline. Airway patent. Tongue does not deviate. NECK: Supple without nuchal rigidity. No lymphadenopathy. No thyromegaly. Cervical spine is nontender. No JVD. HEART: Regular rate and rhythm without murmurs gallops or rubs. LUNGS: Clear to auscultation bilaterally without wheezes, rales or rhonchi. No dullness to percussion. No retractions or accessory muscle use. ABDOMEN: Positive bowel sounds x 4. Normal tympanic percussion. Significant tenderness noted to right lower quadrant, left lower quadrant. +Rovsing's sign. Soft, without masses or organomegaly. Santamaria sign negative. No guarding or rebound tenderness. MUSCULOSKELETAL: No muscle atrophy, erythema, or edema noted. Full range of motion without joint tenderness in all extremities. Tenderness on palpation of the lumbar spine, worse on the left. No muscle spasms present. No tenderness of the thoracic spine or paraspinous muscles. + Straight leg raising test on the left. Normal gait. Strength 5/5 throughout. NEURO: Patient was alert and oriented to person place and time. Normal sensation to light and sharp touch. Deep tendon reflexes 2+ throughout. No focal neurological deficits. Medical Decision & Procedures ER Provider Diagnostic Interpretation: CT ABDOMEN/PELVIS WITH IV AND ORAL CONTRAST: FINDINGS: The liver, spleen, adrenal glands and pancreas are unremarkable. Evaluation is difficult given a paucity of intra-abdominal fat. Multiple water attenuation bilateral renal lesions reflect cysts. The largest is a 3.2 cm left renal lesion. There is no hydronephrosis. There is no evidence for a bowel obstruction. The appendix is normal. There is no free fluid, lymphadenopathy or abscess. There is marked distention of the bladder. No suspicious skeletal lesions are identified. IMPRESSION: 1. No acute process within the abdomen or pelvis. Normal appendix. 2. Difficult study to interpret given a paucity of intra-abdominal fat. 3. Several bilateral renal cysts. 4. Marked distention of the bladder. LABS: CBC did show mild anemia. I did compare these findings with the patient's previous lab work completed approximately one month ago. Hemoglobin, hematocrit , RBCs have improved since that time. I did encourage the patient to follow up with his PCP regarding anemia for further evaluation and management. CBC was without leukocytosis. Patient's electrolytes, kidney function, renal function, lipase were normal for acute abnormalities. Urinalysis was negative. Laboratory Results 06/09/17 18:35 Red Blood Count 4.23, Mean Corpuscular Volume 89.1, Mean Corpuscular Hemoglobin 31.4, Mean Corpuscular Hemoglobin Concent 35.3, Mean Platelet Volume 9.1, Neutrophils (%) (Auto) 61.5, Lymphocytes (%) (Auto) 25.8, Monocytes (%) (Auto) 10.4, Eosinophils (%) (Auto) 2.0, Basophils (%) (Auto) 0.2, Neutrophils # (Auto ) 4.99, Lymphocytes # (Auto) 2.09, Monocytes # (Auto) 0.84, Eosinophils # (Auto ) 0.16, Basophils # (Auto) 0.02 06/09/17 18:35 Test 06/09/17 18:35 06/09/17 19:20 White Blood Count 8.11 K/uL (4.8-10.8) Red Blood Count 4.23 M/uL (4.7-6.1) Hemoglobin 13.3 g/dL (14.0-18.0) Hematocrit 37.7 % (42-52) Mean Corpuscular Volume 89.1 fL (80-100) Mean Corpuscular Hemoglobin 31.4 pg (25-34) Mean Corpuscular Hemoglobin Concent 35.3 g/dl (32-36) Platelet Count 213 K/uL (130-400) Mean Platelet Volume 9.1 fL (7.4-10.4) Neutrophils (%) (Auto) 61.5 % Lymphocytes (%) (Auto) 25.8 % Monocytes (%) (Auto) 10.4 % Eosinophils (%) (Auto) 2.0 % Basophils (%) (Auto) 0.2 % Neutrophils # (Auto) 4.99 K/uL (1.4-6.5) Lymphocytes # (Auto) 2.09 K/uL (1.2-3.4) Monocytes # (Auto) 0.84 K/uL (0.11-0.59) Eosinophils # (Auto) 0.16 K/uL (0-0.5) Basophils # (Auto) 0.02 K/uL (0-0.2) RDW Standard Deviation 43.3 fL (36.4-46.3) RDW Coefficient of Variation 13.2 % (11.5-14.5) Immature Granulocyte % (Auto) 0.1 % Immature Granulocyte # (Auto) 0.01 K/uL (0.00-0.02) Anion Gap 7.0 mmol/L (3-11) Est Creatinine Clear Calc Drug Dose 102.8 ml/min Estimated GFR () 120.1 Estimated GFR (Non- 103.6 BUN/Creatinine Ratio 11.5 (10-20) Calcium Level 8.8 mg/dl (8.5-10.1) Total Bilirubin 0.2 mg/dl (0.2-1) Aspartate Amino Transf (AST/SGOT) 37 U/L (15-37) Alanine Aminotransferase (ALT/SGPT) 37 U/L (12-78) Alkaline Phosphatase 59 U/L (45-117) Total Protein 6.8 gm/dl (6.4-8.2) Albumin 3.9 gm/dl (3.4-5.0) Globulin 2.9 gm/dl (2.5-4.0) Albumin/Globulin Ratio 1.3 (0.9-2) Lipase 218 U/L (73-393) Urine Color YELLOW Urine Appearance CLEAR (CLEAR) Urine pH 6.5 (4.5-7.5) Urine Specific Anthon 1.011 (1.000-1.030) Urine Protein NEG (NEG) Urine Glucose (UA) NEG (NEG) Urine Ketones NEG (NEG) Urine Occult Blood NEG (NEG) Urine Nitrite NEG (NEG) Urine Bilirubin NEG (NEG) Urine Urobilinogen NEG (NEG) Urine Leukocyte Esterase NEG (NEG) Medications Administered Medications (Trade) Dose Ordered Sig/Laz Route Start Time Stop Time Status Last Admin Dose Admin Sodium Chloride 1,000 ml @ 999 mls/hr Q1H1M STAT IV 06/09/17 18:42 06/09/17 19:42 DC 06/09/17 19:06 999 MLS/HR Ketorolac Tromethamine (Toradol Inj) 30 mg NOW STAT IV 06/09/17 18:42 06/09/17 18:43 DC 06/09/17 19:10 30 MG Ondansetron HCl (Zofran Inj) 4 mg NOW STAT IV 06/09/17 18:42 06/09/17 18:43 DC 06/09/17 19:08 4 MG ED Course The patient was seen and evaluated as above. The patient was given a dose of Zofran 4 mg and Toradol 30 mg through the IV. The patient did note significant improvement in his discomfort with these medications. Labs were reviewed by myself. CT scan results were reviewed by myself and radiologist. I discussed the findings of the studies with the patient. I discussed discharge instructions the patient. He was discharged home in good condition. Medical Decision Throughout the course the patient's care, I considered etiologies including acute appendicitis, acute diverticulitis, acute cholecystitis, acute pancreatitis, viral gastroenteritis, nephrolithiasis, hydronephrosis, pyelonephritis, urinary tract infection, lumbar strain, sciatica, and others. The patient did note significant improvement in his symptoms with pain and nausea medication in the emergency department. Based on the patient's presentation and history, as well as the workup performed in the emergency department, I feel that the patient's symptoms are related to a viral gastroenteritis. I feel that his back pain is related to an acute flare-up of his chronic sciatica. Impression Primary Impression: Gastroenteritis Additional Impression: Sciatica Departure Information Dispostion Home / Self-Care Condition GOOD Prescriptions Ondasetron Odt (ZOFRAN ODT) 4 Mg Tab 4 MG SL Q6H for Nausea, #6 TAB Prov: Radha Grace PA-C 06/09/17 Methylprednisolone (MEDROL DOSEPAK) 4 Mg Johnny 1 PKT PO UD for 6 Days, #1 PKT Prov: Radha Grace PA-C 06/09/17 Referrals No Doctor, Assigned (PCP) Patient Instructions ED Gastroenteritis Viral, ED Sciatica, Formerly [facility], 1928–1983 Additional Instructions You have been treated in the Emergency Department for Back Pain. You have been prescribed a Medrol Dosepak. This is a steroid which will help decrease your inflammation, redness, and itch. Take the medicine as prescribed. Take the ENTIRE 6 day course of the steroids. For pain control, you can use the following [id number] medicines (if >12 yo): - Regular strength (325mg/tab) Tylenol (acetaminophen) 2 tabs every 4-6 hours as needed. Do not exceed 12 tablets in a 24 hour period. Avoid taking more than 4 grams (4000 mg) of Tylenol per day. This includes any other sources of acetaminophen you may take on a regular basis. - Regular strength (200 mg/tab) Advil (ibuprofen) 1-2 tabs every 4-6 hours as needed. Do not exceed a dose of 3200 mg per day. If this is an acute injury, ice can be applied to the area of pain for the first 3 days to help decrease pain and inflammation. After the first 3 days, a heating pad can be used over the area for continued soothing relief. You should schedule a follow-up appointment in 2-3 days with your Primary Care Provider for further evaluation and treatment of your back pain. Return to the Emergency Department if your current symptoms worsen despite treatment course outlined above, or if you develop any of the following symptoms : intractable pain despite aforementioned treatment course, loss of control of your bowel or bladder, numbness or tingling in your groin, or development of a fever. You have been treated in the Emergency Department your Abdominal Pain. Laboratory results and imaging studies have ruled out any emergent causes for your abdominal pain which would warrant admission or surgery. You have been prescribed Zofran to be used for any nausea or vomiting. Take as prescribed. Drink plenty of water and stay well hydrated. Eat plain rice, as this can help to firm up the stool. He should stick with a Shane diet, consisting of bananas , rice, apples, toast until you're feeling better. Please do not return to work until Tuesday. As with any trip to the Emergency Department, you should follow-up with your Primary Care Provider from today's visit. Return to the emergency department if your symptoms persist despite treatment plan outlined above or if the following symptoms occur: increased fevers, chills , worsening nausea/vomiting, blood in your stool or urine. Work Instructions Return To Work: 1 day Problem Qualifiers Additional Impression: Sciatica Laterality: left Qualified Codes: M54.32 - Sciatica, left side
[2017-06-09 19:00] LABS: BASO % 0.2 %; BASO ABS # 0.02 K/uL (0-0.2); COMPLETE YES; HEMATOCRIT 37.7 % (42-52); IG% 0.1 %; LYMPH % 25.8 %; LYMPH ABS # 2.09 K/uL (1.2-3.4); MEAN CELL VOLUME 89.1 fL (80-100); MEAN CORPUSCULAR HEMOGLOBIN 31.4 pg (25-34); MEAN CORPUSCULAR HGB CONC 35.3 g/dl (32-36); MEAN PLATELET VOLUME 9.1 fL (7.4-10.4); MONO % 10.4 %; NEUT % 61.5 %; PLATELET COUNT 213 K/uL (130-400); RED BLOOD COUNT 4.23 M/uL (4.7-6.1); WHITE BLOOD COUNT 8.11 K/uL (4.8-10.8)
[2017-06-09 19:16] LABS: BUN/CREATININE RATIO 11.5 (10-20); CALCIUM 8.8 mg/dl (8.5-10.1); CREATININE 0.81 mg/dl (0.60-1.40); POTASSIUM 3.6 mmol/L (3.5-5.1)
[2017-06-09 19:19] LABS: ALB/GLOB RATIO 1.3 (0.9-2)
[2017-06-09 19:25] LABS: URINE APPEARANCE CLEAR (CLEAR); URINE BILIRUBIN NEG (NEG); URINE COLOR YELLOW; URINE NITRITE NEG (NEG); URINE PH 6.5 (4.5-7.5); URINE SPECIFIC GRAVITY 1.011 (1.000-1.030); UROBILINOGEN NEG (NEG); ZZUR CULT IF INDIC CLEAN CATCH NO
[2017-06-09 19:29] LABS: MANUAL MICROSCOPIC REQUIRED? NO; REVIEW REQ? NO
[2017-06-09] MEDS ORDERED: OPTIRAY 320 IV PRN (20:30)
--- NOTE | 2017-06-09 21:53 | DIAGNOSTIC IMAGING REPORT ---
CT OF THE ABDOMEN AND PELVIS WITH CONTRAST CLINICAL HISTORY: Lower abdominal pain and vomiting. COMPARISON STUDY: None. TECHNIQUE: Following IV administration of 116 mL of [id number]-320, axial images of the abdomen and pelvis were obtained from the lung bases to the proximal femurs. Images were reviewed in the axial, sagittal, and coronal planes. IV contrast was administered without complication. A dose lowering technique was utilized adhering to the principles of ALARA. Oral contrast was administered. CT DOSE: 272.90 mGy.cm FINDINGS: The liver, spleen, adrenal glands and pancreas are unremarkable. Evaluation is difficult given a paucity of intra-abdominal fat. Multiple water attenuation bilateral renal lesions reflect cysts. The largest is a 3.2 cm left renal lesion. There is no hydronephrosis. There is no evidence for a bowel obstruction. The appendix is normal. There is no free fluid, lymphadenopathy or abscess. There is marked distention of the bladder. No suspicious skeletal lesions are identified. IMPRESSION: 1. No acute process within the abdomen or pelvis. Normal appendix. 2. Difficult study to interpret given a paucity of intra-abdominal fat. 3. Several bilateral renal cysts. 4. Marked distention of the bladder. Electronically signed by: Neftali Ac M.D. 06/09/2017 9:52 PM Dictated Date/Time: 06/09/2017 9:46 PM
[2017-06-09] MEDS ORDERED: ONDA4TAB10 SL (21:59)
[2017-06-09] MEDS ORDERED: METH4PAK PO (21:59)
[2017-06-09 22:00] VITALS: BP 122/67; PULSE 80; O2SAT 98
== END 2017-06-09 22:11 | disposition home or self-care (01) ==
LOC: C.EDB 17:56
DX: K52.9 Noninfective gastroenteritis and colitis, unspecified (principal); M54.32 Sciatica, left side; J45.909 Unspecified asthma, uncomplicated; J43.9 Emphysema, unspecified; F17.210 Nicotine dependence, cigarettes, uncomplicated; Z82.49 Family history of ischemic heart disease and other diseases of the circulatory system

== ENCOUNTER 2018-07-07 14:05 | Emergency (ER) | payer OTHER ==
[~2018-07-07] VITALS: Ht 175.3 cm; Wt 65.0 kg
[2018-07-07 14:18] VITALS: Ht 175.3 cm; Wt 65.0 kg
--- NOTE | 2018-07-07 14:35 | EMERGENCY ROOM VISIT NOTE ---
ED Visit Note First contact with patient: 14:22 CHIEF COMPLAINT: Right upper arm and shoulder pain, fall from trailer HISTORY OF PRESENT ILLNESS: This 52-year-old male patient presents to the emergency department, ambulatory, complaining of pain in the right upper arm and shoulder for 3 hours. The patient states he was working on the roof of his trailer when he stepped back, slipping on a wet spot, causing him to fall. The patient states he struck his right arm against a tree, and fell down approximately 10 feet, landing on his buttocks. He denies any head injury or neck pain. He denies any back pain. The patient states the only concern he has at this time is that his right upper arm is causing discomfort in 2 months to ensure there is no serious injury. There is mild limitation of motion of the arm because of the pain. The pain is moderate, constant and increases with motion of the hand and arm. The patient states the pain is sharp and 6/10. The patient has taken no medications for relief of the pain. No previous significant previous shoulder disease or injury. No numbness or tingling. No neck or back pain. No chest pain or shortness of breath. No abdominal pain or nausea/vomiting. No cough. REVIEW OF SYSTEMS: A 6 system review of systems was performed with positives and pertinent negatives in the HPI. ALLERGIES: Naproxen MEDICATIONS: Neurontin, "It starts with a B..." PMH: COPD, bipolar SOCIAL HISTORY: Patient lives locally with family. He admits to tobacco and alcohol use. He denies drug use. PHYSICAL EXAM: Vital Signs: Reviewed nurse's notes, vital signs stable. GENERAL : This is a 52-year-old white male, in no acute distress, but appears to be in pain, well-developed, well-nourished. MUSCULOSKELETAL: There is no deformity in the contour of the right shoulder and there are no baljinder deformities noted. There is no sulcus sign. There is tenderness over the posterior shoulder and proximal humerus. The patient's range of motion is limited due to pain. Supraspinatus strength 5/5. There is no clavicle tenderness. No tenderness of the elbow, wrist, or hand. Able Bodied Seaman strength 5/5. Radial pulse 2+. No pain in the spine or paraspinous muscles. NECK: No tenderness to palpation over the cervical spine. Full range of motion of the cervical spine. Supple, no lymphadenopathy. HEART: Regular rate and rhythm without murmurs gallops or rubs. LUNGS: Clear to auscultation bilaterally without wheezes, rales or rhonchi. No accessory muscle use. No retractions. NEURO: The patient is alert and oriented to person, place, and time. Normal sensation to light and sharp touch. Capillary refill less than 2 seconds. RADIOLOGY: R SHOULDER MIN 2 VIEWS ROUTINE CLINICAL HISTORY: 52 years-old Male presenting with right shoulder pain. TECHNIQUE: Internal rotation, external rotation, Grashey views of the right shoulder were obtained. COMPARISON: 04/08/2014. FINDINGS: Glenohumeral and acromioclavicular joints congruent. No subluxation of the humeral head. No deformity of the humeral head. No acute fracture or malalignment. No advanced degenerative change. No radiographic soft tissue abnormality. IMPRESSION: No acute osseous injury. Electronically signed by: Javy Olivarez M.D. 07/07/2018 2:54 PM Dictated Date/Time: 07/07/2018 2:53 PM R HUMERUS MIN 2 VIEWS ROUTINE CLINICAL HISTORY: 52 years-old Male presenting with right upper arm pain, fall. TECHNIQUE: Frontal and lateral views of the right humerus were obtained. COMPARISON: 04/08/2014. FINDINGS: Glenohumeral and elbow joints congruent. No acute fracture or malalignment. No advanced degenerative change. No radiographic soft tissue abnormality. IMPRESSION: No acute osseous injury. Electronically signed by: Javy Olivarez M.D. 07/07/2018 2:53 PM Dictated Date/Time: 07/07/2018 2:52 PM EMERGENCY DEPARTMENT COURSE: I examined the patient. I offered analgesics and the patient declines. An X-ray of the right shoulder and right humerus was reviewed by myself and radiologist and shows no acute fracture or bony abnormalities. Discussed findings with patient at bedside. Suspect his pain is related to the contusion from hitting the tree on his way down. I did discuss with patient strict return precautions, including back pain and head injury precautions due to the mechanism of injury and the patient verbalizes understanding. The patient will be given an arm sling for comfort. Discharge instructions reviewed, the patient was discharged home in good condition. I attest that I have personally reviewed the patient's current medication list. Patient was found to have normal blood pressure on screening and does not require follow-up. DIAGNOSIS: Right upper arm pain, contusion The chart was completed utilizing [email or web address] Speech voice recognition software. Grammatical errors, random word insertions, pronoun errors, and incomplete sentences are an occasional consequence of this system due to software limitations, ambient noise, and hardware issues. Any formal questions or concerns about the content, text, or information contained within the body of this dictation should be directly addressed to the provider for clarification. Problem List Medical Problems: (1) Ankle sprain Status: Resolved (2) Ankle sprain Status: Resolved (3) Asthma Status: Chronic (4) Bronchitis Status: Resolved (5) Chest pain Status: Resolved (6) Dental abscess Status: Resolved (7) Emphysema Status: Chronic (8) Emphysema lung Status: Resolved (9) Low back pain Status: Resolved (10) Lumbago Status: Chronic (11) Pain, dental Status: Resolved (12) Right shoulder pain Status: Resolved (13) Substernal chest pain Status: Resolved (14) Superficial phlebitis of arm Status: Resolved Allergies Coded Allergies: Naproxen (Verified Adverse Reaction, Intermediate, vomiting, 04/12/17) Vital Signs Date Time Temp Pulse Resp B/P (MAP) Pulse Ox O2 Delivery O2 Flow Rate FiO2 07/07/18 14:18 36.6 88 18 119/68 96 Room Air Departure Information Impression Primary Impression: Contusion of right upper arm, initial encounter Dispostion Home / Self-Care Condition GOOD Referrals No Doctor, Assigned (PCP) Patient Instructions ED Contusion Upper Ext, [facility] Additional Instructions You were seen in the ED today for right upper arm pain. X-rays were negative for acute fracture. Ibuprofen(Motrin, Advil) may be used for fever or pain. Use 600mg every six hours as needed. Take with food. Avoid using more than 2400mg in a 24 hour period. Do not use 2400mg per day for more than three consecutive days without physician direction. Prolonged inappropriate use can lead to stomach upset or ulcers. (AND/OR) Acetaminophen(Tylenol) may be used for fever or pain. Use 1000mg every six hours as needed. Avoid using more than 3000mg in a 24 hour period. Ice compresses for 20 minutes at a time four times daily for 2-3 days. Use the sling as instructed. Remove your arm from the sling 4-6 times a day and move all the joints around to keep them loose. Activity as tolerated. Rest and elevate your injury. Return to the ER immediately for any numbness, tingling, severe pain, extreme swelling in the extremity or as needed. Call [facility], [phone], if no improvement in 1 week, to arrange follow up for your injury. Follow-up with your primary care physician in 2 to 3 days for a recheck of your current condition.
--- NOTE | 2018-07-07 14:55 | DIAGNOSTIC IMAGING REPORT ---
R HUMERUS MIN 2 VIEWS ROUTINE CLINICAL HISTORY: 52 years-old Male presenting with right upper arm pain, fall. TECHNIQUE: Frontal and lateral views of the right humerus were obtained. COMPARISON: 04/08/2014. FINDINGS: Glenohumeral and elbow joints congruent. No acute fracture or malalignment. No advanced degenerative change. No radiographic soft tissue abnormality. IMPRESSION: No acute osseous injury. Electronically signed by: Javy Olivarez M.D. 07/07/2018 2:53 PM Dictated Date/Time: 07/07/2018 2:52 PM
--- NOTE | 2018-07-07 14:56 | DIAGNOSTIC IMAGING REPORT ---
R SHOULDER MIN 2 VIEWS ROUTINE CLINICAL HISTORY: 52 years-old Male presenting with right shoulder pain. TECHNIQUE: Internal rotation, external rotation, Grashey views of the right shoulder were obtained. COMPARISON: 04/08/2014. FINDINGS: Glenohumeral and acromioclavicular joints congruent. No subluxation of the humeral head. No deformity of the humeral head. No acute fracture or malalignment. No advanced degenerative change. No radiographic soft tissue abnormality. IMPRESSION: No acute osseous injury. Electronically signed by: Javy Olivarez M.D. 07/07/2018 2:54 PM Dictated Date/Time: 07/07/2018 2:53 PM
[2018-07-07 15:17] VITALS: BP 124/72; PULSE 88; TEMP 36.6; O2SAT 97
== END 2018-07-07 15:35 | disposition home or self-care (01) ==
LOC: C.EDB 14:07 → C.EDD 15:35
DX: S40.021A Contusion of right upper arm, initial encounter (principal); W17.89XA Other fall from one level to another, initial encounter; J44.9 Chronic obstructive pulmonary disease, unspecified; F31.9 Bipolar disorder, unspecified; Z88.8 Allergy status to other drugs, medicaments and biological substances; Z79.899 Other long term (current) drug therapy